=== PATIENT | female | born 1945 | race Caucasian/White ===

== ENCOUNTER 2024-10-09 13:50 | Outpatient (RCR) | payer MEDICARE, OTHER, SELFPAY | END 2024-11-05 14:03 | disposition home or self-care (01) | LOC: PT 13:50 | PROVIDERS: PCP Student in an Organized Health Care Education/Training Program; Visit Provider Student in an Organized Health Care Education/Training Program | DX: M54.50 Low back pain, unspecified (principal); G89.29 Other chronic pain | CPT/HCPCS: 97110; 97161 ==